=== PATIENT | male | born 1965 | race Caucasian/White ===

== ENCOUNTER 2016-10-17 10:19 | Day surgery (SDC) | payer OTHER ==
[~2016-10-17] VITALS: Ht 175.3 cm; Wt 129.3 kg
[~2016-10-17 10:19] MED LIST: 0.9% Sodium Chloride 1,000 ML IV SCH; LISI1TAB11 PO; NAPR220C11 PO; Sodium Chloride LOK Flush 10 mL Syringe IV PRN; fentaNYL-PF 50 mCg/mL 2 mL Inj IVPUSH PRN
[2016-10-17 10:29] VITALS: BP 138/89; PULSE 69; RESP 19; O2SAT 97
[2016-10-17 11:28] VITALS: BP 126/89; PULSE 67; RESP 16; O2SAT 95
[2016-10-17 11:38] VITALS: BP 139/84; PULSE 63; RESP 16; O2SAT 94
[2016-10-17 11:48] VITALS: BP 120/73; PULSE 65; RESP 16; O2SAT 96
--- NOTE | 2016-10-17 11:49 | ENDO ---
[address] [address] ENDOSCOPY PROCEDURE PATIENT: BANDAR JOSEPH : 1965 MR#: [id number] ADMIT: 10/17/2016 JOB ID: [id number] DATE OF SERVICE: 10/17/2016 PROCEDURE PERFORMED: Colonoscopy. INDICATIONS: The patient with a history of multiple colon adenomas. ASA CLASSIFICATION: The patient's ASA classification is II. MALLAMPATI SCORE: Mallampati score was 2. MEDICATIONS: 1. Versed 5 mg. 2. Fentanyl 100 mcg. INSTRUMENT USED: PCF-H180AL. PREPARATION QUALITY: Fair. PROCEDURE DETAILS: After informed consent was obtained, the patient was brought into the GI suite, where he was placed on oxygen via nasal cannula and monitored with continuous pulse oximeter, telemetry, and blood pressure monitoring. A time-out was performed. Then, he was placed in the left lateral decubitus position and medications were administered for sedation. Digital rectal exam was performed which was unremarkable. The colonoscope was then inserted into the rectum and advanced under direct visualization to the cecum, which was identified by the presence of the ileocecal valve and appendiceal orifice. Once the cecum was reached, the colonoscope was withdrawn back into the rectum, as the mucosa and lumen were examined. In the rectum, retroflexion was performed. Following retroflexion, remaining air in the rectum was suctioned, and procedure was completed. FINDINGS: 1. In the descending colon, there was a diminutive polyp that was removed using cold biopsy forceps. 2. In the sigmoid colon there were six polyps ranging from 4 mm in size to diminutive. The 4 mm polyp was removed using a cold snare. The diminutive polyps were removed using cold biopsy forceps. 3. In the distal rectum just above the anal verge there was a diminutive polyp that was removed with cold biopsy forceps. 4. Scattered diverticula were seen throughout the sigmoid colon. 5. Retroflexed views in the rectum revealed small internal hemorrhoids. IMPRESSION: 1. One descending colon polyp. 2. Six sigmoid polyps. 3. One rectal polyp. 4. Scattered sigmoid diverticula. 5. Moderate-sized internal hemorrhoids. RECOMMENDATIONS: Await polyp pathology results to determine subsequent colonoscopy. COMPLICATIONS: None. ESTIMATED BLOOD LOSS: Less than 5 mL.
--- NOTE | 2016-10-20 12:27 | PATH ---
SURGICAL PATHOLOGY Attending Physician:Marshall Emerson CASE STATUS: Signed Out PATIENT NAME: BANDAR JOSEPH PID: [id number] : 1965 DATE COLLECTED:10/17/2016 20:11 SPECIMEN: 1: Colon, Biopsy 2: Colon, Biopsy 3: Rectum, Biopsy CLINICAL HISTORY: 1). DESCENDING POLYP X1 2). SIGMOID POLYP X6 3). RECTAL POLYP X1 FINAL DIAGNOSIS: 1.DESCENDING COLON POLYP: TUBULAR ADENOMA. 2.SIGMOID COLON POLYPS: HYPERPLASTIC POLYP INVOLVING MULTIPLE BIOPSY FRAGMENTS. 3.RECTAL POLYP: SMALL HYPERPLASTIC POLYP. ICD10 CODE D12.4 GROSS DESCRIPTION: The specimen is received in three formalin filled containers labeled with the patient's name. 1). The specimen is sublabeled "descending polyp" and consists of 2 portions of tissue which aggregate to 0.3 x 0.3 x 0.2 CM. The specimen is entirely submitted in cassette 1A. 2). The specimen is sublabeled "sigmoid polyp" and consists of multiple portions of tissue which aggregate to 0.6 x 0.6 x 0.4 CM. The specimen is entirely submitted in cassette 2A. 3). The specimen is sublabeled "rectal polyp" and consists of a 0.1 x 0.1 x 0.1 CM portion of tissue which is entirely submitted in cassette 3A. 10/17/2016 DAC MICRO DESCRIPTION: See diagnosis. ICD-9 CODES: CPT CODES: 1: 23758 2: 64093 3: 97625 Electronically Signed Out Bandar Dent MD [facility] Pathology [facility] [address], [place] [address] Technical component performed at [facility], [facility] [address], [address]
== END 2016-10-17 23:59 | disposition home or self-care (01) ==
LOC: END 10:19
PROVIDERS: ATTEND Internal Medicine Gastroenterology
DX: Z12.11 Encounter for screening for malignant neoplasm of colon (principal); D12.4 Benign neoplasm of descending colon; D12.5 Benign neoplasm of sigmoid colon; K62.1 Rectal polyp; K57.30 Diverticulosis of large intestine without perforation or abscess without bleeding; K64.8 Other hemorrhoids; I10 Essential (primary) hypertension; F17.210 Nicotine dependence, cigarettes, uncomplicated; Z86.010 Personal history of colon polyps; Z79.899 Other long term (current) drug therapy
CPT/HCPCS: 45380; 45385; J2250; J7030